=== PATIENT | female | born 1990 | race American Indian/Alaskan Native ===

== ENCOUNTER 2019-05-15 13:28 | Emergency (ER) | payer MEDICARE ==
[2019-05-15 13:53] VITALS: BP 106/57
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
[2019-05-15] MEDS ORDERED: TETANUS,DIPH,PERTUSS(ACELL) VACCINE 0.5 ML SYRINGE IM ONE (15:30)
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
[2019-05-15] MEDS ORDERED: oxyCODONE /ACETAMINOPHEN 5-325MG TAB PO ONE (15:31)
[2019-05-15] MEDS ORDERED: ceFAZolin 1 GM VIAL IM ONE (15:31)
== END 2019-05-15 16:30 | disposition home or self-care (01) ==
LOC: ED 13:28
DX: T25.222A Burn of second degree of left foot, initial encounter (principal); T31.0 Burns involving less than 10% of body surface; F10.10 Alcohol abuse, uncomplicated; F12.10 Cannabis abuse, uncomplicated; Z79.899 Other long term (current) drug therapy
CPT/HCPCS: 16020; 90471; 90715; 96372; 99283; J0690